=== PATIENT | male | born 1950 | race Caucasian/White ===

== ENCOUNTER 2017-05-24 18:34 | Emergency (ER) | payer BC ==
[~2017-05-24] VITALS: Ht 180.3 cm; Wt 84.1 kg
[2017-05-24 18:47] VITALS: BP 134/76
[2017-05-24] MEDS: HYDROcodone/acetaminophen 5mg/325mg tablet PO ONE (19:45)
[2017-05-24] MEDS ORDERED: HYDR-569 PO (19:49)
[2017-05-24] MEDS: TETanus/Pertussis (Acell)/Diphther VAC/PF (Tdap-Adult) 0.5ml syringe IM ONE (19:56)
== END 2017-05-24 20:11 | disposition home or self-care (01) ==
LOC: ER 18:35
DX: S61.012A Laceration without foreign body of left thumb without damage to nail, initial encounter (principal); I10 Essential (primary) hypertension; E11.9 Type 2 diabetes mellitus without complications; Z88.0 Allergy status to penicillin; Z88.2 Allergy status to sulfonamides; W26.0XXA Contact with knife, initial encounter; Y93.89 Activity, other specified; Y92.89 Other specified places as the place of occurrence of the external cause; Y99.8 Other external cause status
CPT/HCPCS: 90471; 90715; 99283; A6222; A6255; A6449

== ENCOUNTER 2018-05-07 00:54 | Outpatient (CLI) | payer MEDICARE, BC ==
[~2018-05-07 00:54] MED LIST: HYDR-4383 PO
== END 2018-05-07 23:59 | disposition home or self-care (01) ==
LOC: DIABETIC 00:54
PROVIDERS: ATTEND Internal Medicine
DX: E11.9 Type 2 diabetes mellitus without complications (principal); Z71.3 Dietary counseling and surveillance; I10 Essential (primary) hypertension
CPT/HCPCS: G0108

== ENCOUNTER 2018-06-18 01:45 | Outpatient (CLI) | payer MEDICARE, BC | END 2018-06-18 23:59 | disposition home or self-care (01) | LOC: DIABETIC 01:45 | PROVIDERS: ATTEND Internal Medicine | DX: E11.65 Type 2 diabetes mellitus with hyperglycemia (principal); Z79.84 Long term (current) use of oral hypoglycemic drugs; Z88.0 Allergy status to penicillin; Z88.2 Allergy status to sulfonamides; Z88.8 Allergy status to other drugs, medicaments and biological substances | CPT/HCPCS: G0108 ==

== ENCOUNTER 2018-09-18 02:33 | Outpatient (CLI) | payer MEDICARE, BC | END 2018-09-18 23:59 | disposition home or self-care (01) | LOC: DIABETIC 02:33 | PROVIDERS: ATTEND Internal Medicine | DX: E11.9 Type 2 diabetes mellitus without complications (principal); I10 Essential (primary) hypertension; Z79.84 Long term (current) use of oral hypoglycemic drugs; Z88.0 Allergy status to penicillin; Z88.2 Allergy status to sulfonamides; Z88.8 Allergy status to other drugs, medicaments and biological substances | CPT/HCPCS: G0108 ==

== ENCOUNTER 2019-04-01 00:21 | Outpatient (CLI) | payer MEDICARE, BC | END 2019-04-01 23:59 | disposition home or self-care (01) | LOC: DIABETIC 00:21 | PROVIDERS: ATTEND Internal Medicine | DX: E11.9 Type 2 diabetes mellitus without complications (principal) | CPT/HCPCS: G0108 ==